=== PATIENT | female | born 1965 | race Caucasian/White ===

== ENCOUNTER → 2017-02-03 | Outpatient (CLI) | payer BC ==
--- NOTE | 2017-02-03 20:18 | MR ---
EXAMINATION TYPE: MR shoulder RT wo con DATE OF EXAM: 02/03/2017 COMPARISON: NONE HISTORY: 51-year-old female rotator cuff strain, muscle weakness, fall. TECHNIQUE: Multiplanar, multisequence imaging of the right shoulder is performed without contrast. FINDINGS: The long head biceps tendon is intact and appropriately situated along the bicipital groove. There is minimal intrasubstance tear at the mid subscapularis tendon footprint. The majority of the s ubscapularis tendon remains intact. There is moderate degenerative joint space narrowing with marginal spurring and capsular hypertrophy at the acromial clavicular joint. Reactive subchondral marrow edema is present and changes impress on the underlying myotendinous junction of the supraspinatus. There is a small subacromial/subdeltoid bursal effusion. There is diffuse thickening and increased signal throughout the supraspinatus and infraspinatus tendo ns. Along the far anterior supraspinatus tendon, there is a small bursal sided tear measuring 8 x 8 mm. U nderlying cystic change within the greater tuberosity and bony irregularity. There is an additional articular sided tear of the posterior supraspinatus tendon measuring just over 50% of the tendon thickness located proximal to the footprint, below the level of the acromion just beyond the rotator cable. This tear measures 6 mm long and 4 mm wide but has interstitial delaminatio n posteriorly into the infraspinatus tendon by 1.8 cm AP and 1.7 cm long. No clear full thickness tear is identified. No atrophy of the rotator cuff musculature. Evaluation of the glenohumeral joint shows what appears to be a Erin complex. Also, there is a tear of the superior labrum extending from the biceps anchor back to the posterior aspect of the superior labrum. No paralabral cyst. Small glenohumeral joint effusion. No Hill-Sachs deformity or os acromiale. No suspicious bone marrow replacement. IMPRESSION: 1. Marked diffuse rotator cuff tendinosis or contusion. 2. There is a small 8 x 8 mm bursal sided tear of the far anterior supraspinatus tendon. 3. Additional 6 x 4 mm articular sided tear of the posterior supraspinatus tendon located proximal to the footprint and measuring just over 50% tendon thickness. Tear shows interstitial delamination pos teriorly measuring 1.8 x 1.7 cm into the infraspinatus tendon. No clear full thickness tear identifie d. 4. Small intrasubstance tear at the footprint of the mid subscapularis tendon fibers. 5. Moderate AC joint OA with impingement onto the underlying cuff. Mild subacromial/subdeltoid bursit is. 6. SLAP tear and incidental [place] complex.
== END | disposition home or self-care (01) ==
LOC: RADMRIMAIN 11:14
PROVIDERS: ATTEND Family Medicine
DX: S46.811D Strain of other muscles, fascia and tendons at shoulder and upper arm level, right arm, subsequent encounter (principal); S43.491D Other sprain of right shoulder joint, subsequent encounter; M19.011 Primary osteoarthritis, right shoulder